=== PATIENT | female | born 1940 | race Caucasian/White ===

== ENCOUNTER 2016-11-29 11:19 | Day surgery (SDC) | payer MEDICARE, BC ==
[2016-11-27 11:45] LABS: HEMATOCRIT 40.2 % (36.0-48.0); HEMOGLOBIN 12.4 g/dL (12.0-16.0)
[2016-11-27 11:58] LABS: BUN (BLOOD UREA NITROGEN) 14 MG/DL (6-23); CALCIUM, SERUM 9.6 MG/DL (8.5-10.4); CHLORIDE, SERUM 111 MMOL/L (96-112); CO2 (CARBON DIOXIDE) 25 MMOL/L (24-34); CREATININE 0.82 MG/DL (0.55-1.02); GFR AFRICAN AMERICAN 81 ML/MIN (>=60); GFR NON AFRICAN AMERICAN 70 ML/MIN (>=60); GLUCOSE, SERUM 90 MG/DL (60-99); POTASSIUM, SERUM 3.9 MMOL/L (3.5-5.3); SODIUM, SERUM 141 MMOL/L (135-148)
[~2016-11-29] VITALS: Ht 162.6 cm; Wt 69.9 kg
--- NOTE | ~2016-11-29 | OP ---
Record Of Operation [facility] [address] [place]. [address] NAME: TYSON ARCHER : 40 STATUS : [facility]#: [id number] AGE: 76 ADM/REG DATE : 11/29/16 MR#: [id number] REPORT SERV DATE: 11/29/16 DICTATED BY: Delma NUNEZ DATE: 11/29/16 REPORT STATUS : Draft TRANSCRIBED BY: MODMindi DATE: 11/29/16 DATE OF PROCEDURE: 11/29/2016 [facility] PREOPERATIVE DIAGNOSES: 1. Basal cell carcinoma of the left medial cheek. 2. Defect of the left medial cheek secondary to Mohs micrographic surgical excision of basal cell carcinoma. POSTOPERATIVE DIAGNOSES: 1. Basal cell carcinoma of the left medial cheek. 2. Defect of the left medial cheek secondary to Mohs micrographic surgical excision of basal cell carcinoma. PROCEDURE: 1. Surgical excisional preparation of left cheek defect. 2. Reconstruction of left cheek defect with rotation flap closure (2 cm x 5 cm). 3. Z-plasty reconstruction at the upper end of the nasal portion of the reconstruction. FINDINGS: A 1.25 cm wide x 1.1 cm tall defect of the left medial cheek, with beveled edges, located 5 mm from the nasofacial sulcus and 8 mm from the apical triangle of the upper lip where it meets the nostril superiorly. 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 At a separate consultation, prior to the Mohs surgery, the pros and cons, alternatives, benefits, risks, limitations, and complications of repair of the anticipated defect were discussed at length with the patient. No guarantees expressed. We discussed complications such as scarring, reaction to suture, infection, distortion of the eyelid and cheek, recurrence of tumor, imponderables. She understands and wished to proceed. Proper consent obtained. DESCRIPTION OF PROCEDURE: She was taken into the operating room and given general oral endotracheal anesthesia in the supine position. The bandage on her left cheek was removed, and the entire face and upper neck were prepped with Hibiclens and saline followed by isopropyl alcohol. None of these solutions got in her eyes. None of the alcohol got in the wound. Sterile drapes were applied. The defect measured as stated above in the findings. The edges of the defect were beveled, and they were marked out for surgical excision. A long fusiform ellipse was marked out around this, paralleling the direction of the meso-labial fold and extending up to the lateral and upper portion of the nasofacial sulcus. The cheek and eyelid and nose were injected with 1% Xylocaine with 1:100,000 epinephrine. An infraorbital nerve block was accomplished with 0.5% Marcaine with 1:200,000 epinephrine. Eight minutes elapsed for vasoconstriction. Record Of Operation [facility] [address] [facility] [place]. [address] NAME: TYSON ARCHER : 40 STATUS : [facility]#: [id number] AGE: 76 ADM/REG DATE : 11/29/16 MR#: [id number] REPORT SERV DATE: 11/29/16 DICTATED BY: Delma NUNEZ DATE: 11/29/16 REPORT STATUS : Draft TRANSCRIBED BY: GAUTAM DATE: 11/29/16 A #15 blade was used to excise the fusiform ellipse which included the beveled edges of the defect, to prepare the wound by surgical excisional preparation so that the beveled edges were removed and proper edges for healing were created. This also prepared it for flap reconstruction. The lateral 2 cm x 5 cm flap was then developed with the [employer] needle tip cautery in the subcutaneous plane. This flap was rotated medially superiorly to prevent ectropion or scleral show. The flap was secured with 5-0 Vicryl. The excess of the rotation flap along the upper nasofacial sulcus was treated with excision and back cut and a small Z-plasty near the medial canthal area on the nose. This area was secured with 6-0 Vicryl deep. The wounds were cleansed with hydrogen peroxide and dried. Mastisol was placed on the upper portion of the wound at the Z-plasty and along the side of the nasofacial sulcus and the other half of the skin edges were coapted in the inferior aspect with 6-0 Prolene. The wounds were cleansed with hydrogen peroxide again and dried. Mastisol and paper tape were applied in an antitension fashion. There were no ectropion and no scleral show. The hemostasis was excellent. Estimated blood loss was 3 mL. She was awakened, extubated, and taken to recovery room in good condition having tolerated the procedure well. Home going instructions included prescriptions for cephalexin 500 mg p.o. b.i.d. labeled antibiotic, dispensed 14 and generic Zofran 8 mg ODT #6 one dissolved orally q.6 hours p.r.n. nausea or vomiting (both of these prescriptions were called to [facility], and they will be delivered to her house); additional prescription was written for hydrocodone 5 mg/325 APAP #15 one p.o. q.4-6 h. p.r.n. pain. Recheck in the office in one week. She is to keep the tape dry and intact on her face and have a mechanically soft diet. She is to avoid laughing, talking, smiling, and chewing. ERIC/GAUTAM Delma Nunez M.D. / [id number] CC: Joaquín Conway M.D.
[~2016-11-29 11:19] MED LIST: ACET500CAP PO; ACTONEL150 MG PO; ALEVE220 MG PO; AMB10 PO; APRISO PO; APRISO0.375 GM PO; AUG875 PO; BEN25 PO; BONIVA3I IV; COUMADIN3 MG PO; CYANO1000T PO; CYMBALTA60 PO; ENTOCORT3 PO; IRON PILL; LIPITOR10 PO; LOM PO; MACROBID PO; MAX25 PO; MELATONIN10 M2 PO; NEUR300 PO; PAX20 PO; PCET PO; PRILOSEC40 MG PO; PRIN10 PO; T PO; ULTRAM50 PO; VITD PO; WELCHOL3.75 GM PO; ZESTRIL5 MG PO; ZOCOR40 PO
== END 2016-11-29 17:56 | disposition home or self-care (01) ==
LOC: SDC 11:19
PROVIDERS: Specialist
PROC: 0HX1XZZ Transfer Face Skin, External Approach (ICD-10-PCS; principal; 2016-11-29 13:15)
DX: M95.2 Other acquired deformity of head (principal); I10 Essential (primary) hypertension; K21.9 Gastro-esophageal reflux disease without esophagitis; I44.7 Left bundle-branch block, unspecified; G62.9 Polyneuropathy, unspecified; Z90.710 Acquired absence of both cervix and uterus; Z98.890 Other specified postprocedural states; Z85.828 Personal history of other malignant neoplasm of skin; Z79.899 Other long term (current) drug therapy; Z88.8 Allergy status to other drugs, medicaments and biological substances; Z98.41 Cataract extraction status, right eye; Z98.42 Cataract extraction status, left eye; Z96.642 Presence of left artificial hip joint; Z96.651 Presence of right artificial knee joint
CPT/HCPCS: 80048; 85014; 85018; 93005; J0690; J2250; J2405; J2710; J3010